=== PATIENT | male | born 1990 | race Caucasian/White ===

== ENCOUNTER 2017-07-18 15:59 | Emergency (ER) | payer BC, OTHER ==
[2017-07-18] MEDS: KETOROLAC 30 MG INJ IV (17:07)
[2017-07-18] MEDS: SOD CHLORIDE 0.9% 1,000 ML IV (17:07)
[2017-07-18] MEDS: ONDANSETRON 4 MG INJ IV (17:07)
[2017-07-18] MEDS: morphine 4 MG/ML VIAL IV (17:07)
== END 2017-07-18 18:22 | disposition home or self-care (01) ==
LOC: FTE 15:59
DX: R19.7 Diarrhea, unspecified (principal); B34.9 Viral infection, unspecified
CPT/HCPCS: 96374; 96375; 99284-25

== ENCOUNTER 2018-07-26 19:44 | Emergency (ER) | payer BC ==
[2018-07-26] MEDS: ALBUTEROL 0.5% (NEB) 2.5 MG/0.5 ML AMP INH (20:53)
[2018-07-26] MEDS: IPRATROPIUM (NEB) 0.5 MG/2.5 ML AMP INH (20:53)
[2018-07-26] MEDS: SOD CHLORIDE 0.9% 500 ML IV (21:04)
[2018-07-26] MEDS: KETOROLAC 15 MG INJ IV (21:04)
[2018-07-26 21:57] LABS: ADD MAN DIFF? NO
[2018-07-26 21:59] LABS: BASOPHILS % 0.3 % (0.0-2.0); EOSINOPHILS # 0.1 10^3/ul (0.0-0.5); EOSINOPHILS % 0.8 % (0.0-7.0); HEMATOCRIT 40.3 % (42.0-52.0); HEMOGLOBIN 13.8 g/dl (14.0-18.0); LYMPHOCYTES % 17.3 % (15.0-51.0); MEAN CORPUSCULAR HEMOGLOBIN 30.1 pg (29.0-33.0); MEAN CORPUSCULAR HGB CONC 34.2 g/dl (32.0-37.0); MEAN PLATELET VOLUME 10.4 fl (7.4-10.4); MONOCYTE # 0.9 10^3/ul (0.3-0.9); MONOCYTES % 7.8 % (0.0-11.0); NEUTROPHIL # 8.4 10^3/ul (1.6-7.5); NEUTROPHILS % 73.4 % (39.0-77.0); PLATELET COUNT 207 10^3/UL (140-415); RED BLOOD COUNT 4.58 10^6/ul (4.70-6.10); RED CELL DISTRIBUTION WIDTH 12.4 % (11.5-14.5)
[2018-07-26 21:59] LABS: WHITE BLOOD COUNT 11.5 10^3/ul (4.8-10.8)
[2018-07-26 22:17] LABS: ALANINE AMINOTRANSFERASE 48 IU/L (13-69); ALBUMIN 3.9 g/dl (3.3-4.9); ALBUMIN/GLOBULIN RATIO 1.21; ALKALINE PHOSPHATASE 77 IU/L (42-121); ANION GAP 10 (5-13); ASPARTATE AMINO TRANSFERASE 24 IU/L (15-46); BILIRUBIN,INDIRECT 0.3 mg/dl (0-1.1); BILIRUBIN,TOTAL 0.3 mg/dl (0.2-1.3); BLOOD UREA NITROGEN 17 mg/dl (7-20); CALCIUM 8.3 mg/dl (8.4-10.2); CARBON DIOXIDE 26 mmol/L (21-31); CHLORIDE 103 mmol/L (97-110); CREATININE 1.15 mg/dl (0.61-1.24); Estimated GFR > 60 mL/min (>60); GLUCOSE 125 mg/dl (70-220); LIPASE 57 U/L (23-300); POTASSIUM 3.7 mmol/L (3.5-5.1); SODIUM 139 mmol/L (135-144); TOTAL PROTEIN 7.1 g/dl (6.1-8.1)
[2018-07-26] MEDS: predniSONE 20 MG TAB PO (23:32)
== END 2018-07-26 23:40 | disposition home or self-care (01) ==
LOC: E/R 19:44
DX: J06.9 Acute upper respiratory infection, unspecified (principal); J45.901 Unspecified asthma with (acute) exacerbation
CPT/HCPCS: 36415; 71045; 80053; 83690; 85025; 87400; 87880; 94644; 96374; 99284-25